=== PATIENT | male | born 1985 | race African-American/Black ===

== ENCOUNTER 2016-07-15 21:09 | Emergency (ER) | payer OTHER ==
[~2016-07-15] VITALS: Ht 180.3 cm; Wt 90.7 kg
[~2016-07-15 21:09] MED LIST: CIPROFLOXACIN500 M1 PO; HYDROCODON-ACE1 EAC7 PO; IBUPROFEN 600600 M1 PO; PYRIDIUM100 M1 PO
[2016-07-15 21:27] LABS: URINE BILIRUBIN NEGATIVE (Negative); URINE BLOOD NEGATIVE (Negative); URINE COLOR YELLOW; URINE GLUCOSE-RANDOM* NEGATIVE (Negative); URINE KETONES NEGATIVE (Negative); URINE LEUKOCYTES-REFLEX NEGATIVE (Negative); URINE PROTEIN (DIPSTICK) NEGATIVE (Negative); URINE SPECIFIC GRAVITY 1.015 (1.003-1.035); URINE UROBILINOGEN 0.2 E.U./dl (0.2-1.0)
[2016-07-15] MEDS ORDERED: PHENERGAN 25 MG25 M1 PO (22:07)
[2016-07-15] MEDS ORDERED: FLAGYL500 MG PO (22:07)
[2016-07-15 22:43] VITALS: BP 120/69
== END 2016-07-15 22:44 | disposition home or self-care (01) ==
LOC: ER 21:09
PROVIDERS: Emergency Medicine
DX: R30.0 Dysuria (principal); Z20.2 Contact with and (suspected) exposure to infections with a predominantly sexual mode of transmission; F10.99 Alcohol use, unspecified with unspecified alcohol-induced disorder; F12.90 Cannabis use, unspecified, uncomplicated

== ENCOUNTER 2017-02-03 20:35 | Emergency (ER) | payer OTHER ==
[~2017-02-03] VITALS: Ht 182.9 cm; Wt 95.3 kg
[~2017-02-03 20:35] MED LIST changes: +FLAGYL500 MG PO; +PHENERGAN 25 MG25 M1 PO; +PYRIDIUM200 MG PO
[2017-02-03 20:58] LABS: URINE BILIRUBIN NEGATIVE (Negative); URINE BLOOD NEGATIVE (Negative); URINE COLOR YELLOW; URINE GLUCOSE-RANDOM* NEGATIVE (Negative); URINE KETONES NEGATIVE (Negative); URINE LEUKOCYTES-REFLEX NEGATIVE (Negative); URINE PROTEIN (DIPSTICK) NEGATIVE (Negative); URINE SPECIFIC GRAVITY 1.015 (1.005-1.035); URINE UROBILINOGEN 0.2 E.U./dl (0.2-1.0)
[2017-02-03 22:55] VITALS: BP 132/78
== END 2017-02-03 22:56 | disposition home or self-care (01) ==
LOC: ER 20:35
PROVIDERS: Emergency Medicine
DX: R30.0 Dysuria (principal); Z20.2 Contact with and (suspected) exposure to infections with a predominantly sexual mode of transmission; F17.210 Nicotine dependence, cigarettes, uncomplicated

== ENCOUNTER 2018-02-03 04:06 | Emergency (ER) | payer OTHER ==
[~2018-02-03] VITALS: Ht 185.4 cm; Wt 95.3 kg
[2018-02-03 04:14] VITALS: BP 144/84
[2018-02-03 04:50] LABS: URINE BILIRUBIN NEGATIVE (Negative); URINE BLOOD TRACE (Negative); URINE CLARITY CLEAR; URINE COLOR YELLOW; URINE GLUCOSE-RANDOM* NEGATIVE (Negative); URINE KETONES NEGATIVE (Negative); URINE LEUKOCYTES-REFLEX NEGATIVE (Negative); URINE NITRITE-REFLEX NEGATIVE (Negative); URINE PROTEIN (DIPSTICK) NEGATIVE (Negative); URINE UROBILINOGEN 0.2 E.U./dl (0.2-1.0)
== END 2018-02-03 05:04 | disposition home or self-care (01) ==
LOC: ER 04:06
PROVIDERS: Emergency Medicine
DX: B35.6 Tinea cruris (principal); K59.00 Constipation, unspecified

== ENCOUNTER 2018-05-24 00:18 | Emergency (ER) | payer OTHER ==
[~2018-05-24] VITALS: Ht 182.9 cm; Wt 95.3 kg
[2018-05-24] MEDS ORDERED: NOHOMEMEDICATIONS (00:30)
[2018-05-24 00:44] LABS: URINE BILIRUBIN NEGATIVE (Negative); URINE BLOOD NEGATIVE (Negative); URINE CLARITY CLEAR; URINE COLOR YELLOW; URINE GLUCOSE-RANDOM* NEGATIVE (Negative); URINE KETONES NEGATIVE (Negative); URINE LEUKOCYTES-REFLEX NEGATIVE (Negative); URINE NITRITE-REFLEX NEGATIVE (Negative); URINE PROTEIN (DIPSTICK) NEGATIVE (Negative); URINE UROBILINOGEN 0.2 E.U./dl (0.2-1.0)
[2018-05-24 01:37] VITALS: BP 118/69
== END 2018-05-24 01:53 | disposition home or self-care (01) ==
LOC: ER 00:18
PROVIDERS: Student in an Organized Health Care Education/Training Program
DX: R10.84 Generalized abdominal pain (principal); R30.0 Dysuria; Z20.2 Contact with and (suspected) exposure to infections with a predominantly sexual mode of transmission; F17.210 Nicotine dependence, cigarettes, uncomplicated

== ENCOUNTER 2018-12-08 17:11 | Emergency (ER) | payer OTHER ==
[~2018-12-08] VITALS: Ht 182.9 cm; Wt 95.3 kg
[~2018-12-08 17:11] MED LIST changes: +NOHOMEMEDICATIONS
[2018-12-08 17:37] LABS: URINE BILIRUBIN NEGATIVE (Negative); URINE BLOOD NEGATIVE (Negative); URINE CLARITY CLEAR; URINE COLOR YELLOW; URINE GLUCOSE-RANDOM* NEGATIVE (Negative); URINE KETONES NEGATIVE (Negative); URINE LEUKOCYTES TRACE (Negative); URINE NITRITE NEGATIVE (Negative); URINE PROTEIN (DIPSTICK) NEGATIVE (Negative); URINE SPECIFIC GRAVITY 1.015 (1.005-1.035); URINE UROBILINOGEN 0.2 E.U./dl (0.2-1.0)
[2018-12-08 18:14] LABS: ABSOLUTE NEUTROPHILS 7.3 thou/uL (1.4-8.2); BASOPHILS 0.3 % (0.0-2.0); EOSINOPHILS 0.8 % (0.0-3.0); HEMATOCRIT 42.9 % (42.0-52.0); HEMOGLOBIN 14.9 gm/dL (14.0-18.0); MCH 32.6 pg (26.0-34.0); MCHC 34.7 g/dL (28.0-37.0); MCV 93.8 fL (80.0-100.0); MONOCYTES 10.8 % (1.0-8.0); PLATELET COUNT 239 thou/uL (150-400); POLYS 73.1 % (36.0-66.0); RBC 4.57 mil/uL (4.50-6.00); RDW 13.3 % (10.5-14.5)
[2018-12-08 18:17] LABS: CALCIUM 9.2 mg/dL (8.5-10.1); CREATININE 0.9 mg/dL (0.7-1.3); POTASSIUM 3.6 mmol/L (3.5-5.1)
[2018-12-08 18:24] LABS: ALBUMIN 3.7 g/dL (3.4-5.0); TOTAL BILIRUBIN 0.4 mg/dL (<0.1-1.0); TOTAL PROTEIN 7.8 g/dL (6.4-8.2)
[2018-12-08] MEDS ORDERED: TRAMADOL 50 MG50 MG PO (21:05)
[2018-12-08] MEDS ORDERED: NAPROSYN500 MG PO (21:05)
[2018-12-08] MEDS ORDERED: DOXYCYCLINE 10100 MG PO (21:05)
[2018-12-08 21:24] VITALS: BP 124/79
== END 2018-12-08 21:30 | disposition home or self-care (01) ==
LOC: ER 17:11
PROVIDERS: Emergency Medicine
DX: K52.9 Noninfective gastroenteritis and colitis, unspecified (principal); R30.0 Dysuria; F17.210 Nicotine dependence, cigarettes, uncomplicated

== ENCOUNTER 2019-01-16 17:49 | Emergency (ER) | payer OTHER ==
[~2019-01-16] VITALS: Ht 185.4 cm; Wt 95.3 kg
[~2019-01-16 17:49] MED LIST changes: +DOXYCYCLINE 10100 MG PO; +NAPROSYN500 MG PO; +TRAMADOL 50 MG50 MG PO
[2019-01-16 19:14] LABS: ABSOLUTE NEUTROPHILS 3.8 thou/uL (1.4-8.2); BASOPHILS 0.5 % (0.0-2.0); EOSINOPHILS 0.5 % (0.0-3.0); HEMATOCRIT 46.8 % (42.0-52.0); HEMOGLOBIN 15.8 gm/dL (14.0-18.0); LYMPHOCYTES 25.6 % (24.0-44.0); MCH 32.2 pg (26.0-34.0); MCHC 33.7 g/dL (28.0-37.0); MCV 95.6 fL (80.0-100.0); MONOCYTES 7.9 % (1.0-8.0); PLATELET COUNT 258 thou/uL (150-400); POLYS 65.5 % (36.0-66.0); RBC 4.89 mil/uL (4.50-6.00); RDW 13.3 % (10.5-14.5); WBC 5.8 thou/uL (4.0-11.0)
[2019-01-16 19:23] LABS: CALCIUM 9.6 mg/dL (8.5-10.1); CREATININE 0.9 mg/dL (0.7-1.3); POTASSIUM 3.6 mmol/L (3.5-5.1)
[2019-01-16 19:29] LABS: ALBUMIN 4.3 g/dL (3.4-5.0); DIRECT BILIRUBIN 0.1 mg/dL (<0.1-0.3); TOTAL BILIRUBIN 0.4 mg/dL (<0.1-1.0); TOTAL PROTEIN 8.4 g/dL (6.4-8.2)
[2019-01-16 20:48] LABS: URINE BILIRUBIN NEGATIVE (Negative); URINE BLOOD NEGATIVE (Negative); URINE CLARITY CLEAR; URINE COLOR YELLOW; URINE GLUCOSE-RANDOM* NEGATIVE (Negative); URINE KETONES NEGATIVE (Negative); URINE LEUKOCYTES-REFLEX NEGATIVE (Negative); URINE NITRITE-REFLEX NEGATIVE (Negative); URINE PROTEIN (DIPSTICK) NEGATIVE (Negative); URINE UROBILINOGEN 0.2 E.U./dl (0.2-1.0)
[2019-01-16] MEDS ORDERED: FLAGYL500 M1 PO (21:29)
[2019-01-16 21:43] VITALS: BP 133/83
== END 2019-01-16 21:44 | disposition home or self-care (01) ==
LOC: ER 17:49
PROVIDERS: Emergency Medicine
DX: R10.31 Right lower quadrant pain (principal); R30.0 Dysuria; F17.210 Nicotine dependence, cigarettes, uncomplicated

== ENCOUNTER 2019-07-28 22:44 | Emergency (ER) | payer OTHER ==
[~2019-07-28] VITALS: Ht 185.4 cm; Wt 95.3 kg
[~2019-07-28 22:44] MED LIST changes: +FLAGYL500 M1 PO
[2019-07-28 23:21] LABS: EOSINOPHILS 0.6 % (0.0-3.0); HEMATOCRIT 42.7 % (42.0-52.0); HEMOGLOBIN 14.8 gm/dL (14.0-18.0); LYMPHOCYTES 35.3 % (24.0-44.0); MCHC 34.7 g/dL (28.0-37.0); MONOCYTES 10.7 % (1.0-8.0); PLATELET COUNT 251 thou/uL (150-400); POLYS 52.4 % (36.0-66.0); RBC 4.49 mil/uL (4.50-6.00); RDW 13.3 % (10.5-14.5); WBC 5.7 thou/uL (4.0-11.0)
[2019-07-28 23:29] LABS: CALCIUM 8.6 mg/dL (8.5-10.1); CREATININE 1.1 mg/dL (0.7-1.3); POTASSIUM 3.4 mmol/L (3.5-5.1)
[2019-07-28 23:35] LABS: ALBUMIN 3.9 g/dL (3.4-5.0); TOTAL BILIRUBIN 0.2 mg/dL (0.2-1.0); TOTAL PROTEIN 7.6 g/dL (6.4-8.2)
[2019-07-29 00:05] LABS: URINE BILIRUBIN NEGATIVE (Negative); URINE BLOOD NEGATIVE (Negative); URINE CLARITY CLEAR; URINE COLOR YELLOW; URINE GLUCOSE-RANDOM* NEGATIVE (Negative); URINE KETONES NEGATIVE (Negative); URINE LEUKOCYTES-REFLEX NEGATIVE (Negative); URINE NITRITE-REFLEX NEGATIVE (Negative); URINE PROTEIN (DIPSTICK) NEGATIVE (Negative); URINE SPECIFIC GRAVITY >= 1.030 (1.005-1.035); URINE UROBILINOGEN 0.2 E.U./dl (0.2-1.0)
[2019-07-29] MEDS ORDERED: FLAGYL500 M1 PO (00:36)
[2019-07-29 01:10] VITALS: BP 136/92
== END 2019-07-29 01:05 | disposition home or self-care (01) ==
LOC: ER 22:44
PROVIDERS: Emergency Medicine
DX: R10.30 Lower abdominal pain, unspecified (principal); R30.0 Dysuria; F17.210 Nicotine dependence, cigarettes, uncomplicated; Z20.2 Contact with and (suspected) exposure to infections with a predominantly sexual mode of transmission

== ENCOUNTER 2019-11-10 21:39 | Emergency (ER) | payer OTHER ==
[~2019-11-10] VITALS: Ht 182.9 cm; Wt 95.3 kg
[2019-11-10 22:26] LABS: URINE BILIRUBIN NEGATIVE (Negative); URINE BLOOD NEGATIVE (Negative); URINE CLARITY SL CLOUDY; URINE COLOR YELLOW; URINE GLUCOSE-RANDOM* NEGATIVE (Negative); URINE KETONES NEGATIVE (Negative); URINE LEUKOCYTES-REFLEX NEGATIVE (Negative); URINE NITRITE-REFLEX NEGATIVE (Negative); URINE PROTEIN (DIPSTICK) NEGATIVE (Negative); URINE SPECIFIC GRAVITY 1.015 (1.005-1.035)
[2019-11-11 00:45] VITALS: BP 115/64
== END 2019-11-11 00:57 | disposition home or self-care (01) ==
LOC: ER 21:39
PROVIDERS: Emergency Medicine
DX: A53.9 Syphilis, unspecified (principal); F17.210 Nicotine dependence, cigarettes, uncomplicated